=== PATIENT | male | born 1995 | race American Indian/Alaskan Native ===

== ENCOUNTER 2019-09-29 20:37 | Emergency (ER) | payer SELFPAY ==
[2019-09-29 21:07] VITALS: BP 126/83
--- NOTE | 2019-09-29 21:15 | Event Note ---
ED Screening Note Date of service: 09/29/19 Time: 21:12 ED Screening Note: This is a 24 y.o. M. that presents to the ER with sore throat and diarrhea. Sore throat for 1 week and diarrhea for 2 days. Denies recent travel, unusual foods, fever, chills, cough, abdominal pain, and vomiting. This initial assessment/diagnostic orders/clinical plan/treatment(s) is/are subject to change based on patients health status, clinical progression and re- assessment by fellow clinical providers in the ED. Further treatment and workup at subsequent clinical providers discretion. Patient/guardian urged not to elope from the ED as their condition may be serious if not clinically assessed and managed. Initial orders include: Rapid strep
--- NOTE | 2019-09-29 23:43 | Emergency Department Report ---
HPI - General Chief Complaint: Sore Throat Time Seen by Provider: 09/29/19 21:12 - HPI HPI: Room 29 The pt is a 24 y/o M p/w a cc of sore throat. The pt states his throat has hurt for 1.5 weeks. Pt denies cough, F or sick contacts. Pt gives his pain a score of 5/10 ED Past Medical Hx - Past Medical History Previous Medical History?: No - Surgical History Past Surgical History?: No - Family History Family history: no significant - Social History Smoking Status: Never Smoker Substance Use Type: None - Medications Home Medications: Home Medications Medication Instructions Recorded Confirmed Last Taken Type Amoxicillin [Trimox CAP] 500 mg PO BID #14 capsule 09/30/19 Unknown Rx Ibuprofen [Motrin 800 MG tab] 800 mg PO Q8HR PRN #20 tablet 09/30/19 Unknown Rx traMADol [Ultram] 50 mg PO Q6HR PRN #10 tablet 09/30/19 Unknown Rx ED Review of Systems ROS: Stated complaint: THROAT PAIN/DIARREAH Other details as noted in HPI Constitutional: denies: fever Eyes: denies: eye pain ENT: throat pain Respiratory: denies: cough Cardiovascular: denies: chest pain Physical Exam - Physical Exam Vital Signs: Vital Signs 09/29/19 20:49 Temperature 98.7 F Pulse Rate 95 H Respiratory 18 Rate Blood Pressure 126/83 O2 Sat by Pulse 97 Oximetry Physical Exam: GEN: WD WN M sitting in chair in NAD HEENT: NCAT, EOMI. uvula midline. no exudate seen NECK:Trachea midline, no stridor Pulm: no resp distress Neuro: GCS 15 SKIN: no diaphoresis MS: no evidence of acute injury ED Course Vital Signs 09/29/19 20:49 Temperature 98.7 F Pulse Rate 95 H Respiratory 18 Rate Blood Pressure 126/83 O2 Sat by Pulse 97 Oximetry ED Medical Decision Making - Radiology Data Radiology results: report reviewed (XR soft tissiue neck), image reviewed (XR soft tissiue neck) interpreted by me: XR soft tissiue neck- no prevertebral swelling. no evidence of epiglottitis [facility] [address] [place] [address] XRay Report Signed Patient: TRISHA LE MR#: [id number] : 1995 Acct:[id number] Age/Sex: 24 / M ADM Date: 09/29/19 Loc: ED Attending Dr: Ordering Physician: MAAME BLANCO MD Date of Service: 09/29/19 Procedure(s): XR neck soft tissue Accession Number(s): [id number] cc: MAAME BLANCO MD Fluoro Time In Minutes: NECK SOFT TISSUE 2 VIEW(S) INDICATION / CLINICAL INFORMATION: sore throat COMPARISON: None available. FINDINGS: EPIGLOTTIS: No significant abnormality. RETROPHARYNGEAL SOFT TISSUES: No significant abnormality. AIRWAY: No significant abnormality. RADIOPAQUE FOREIGN BODY: None seen. SKELETAL SYSTEM: No significant abnormality. ADDITIONAL FINDINGS: None. IMPRESSION: 1. No significant abnormality. Signer Name: Michelle Brannon MD Signed: 09/30/2019 12:04 AM Workstation Name: [id number] Transcribed By: DT Dictated By: Rashaad Brannon MD Electronically Authenticated By: Rashaad Brannon MD Signed Date/Time: 09/30/19 0004 DD/ 2359 TD/TT: - Differential Diagnosis pharyngitis, epiglottitis Critical care attestation.: If time is entered above; I have spent that time in minutes in the direct care of this critically ill patient, excluding procedure time. ED Disposition Clinical Impression: Sore throat Disposition: DC-01 TO HOME OR SELFCARE Is pt being admited?: No Does the pt Need Aspirin: No Condition: Stable Instructions: Pharyngitis (ED) Prescriptions: Ibuprofen [Motrin 800 MG tab] 800 mg PO Q8HR PRN #20 tablet PRN Reason: Pain, Moderate (4-6) Amoxicillin [Trimox CAP] 500 mg PO BID #14 capsule traMADol [Ultram] 50 mg PO Q6HR PRN #10 tablet PRN Reason: Pain Referrals: [facility] [Outside] - 3-5 Days JOSE ALBERTO EMERSON MD [Staff Physician] - 3-5 Days (Dr Emerson is an ear nose & throat doctor. Please follow up with him for further evaluation) Time of Disposition: 00:18
--- NOTE | 2019-09-30 00:08 | XRay Report ---
NECK SOFT TISSUE 2 VIEW(S) INDICATION / CLINICAL INFORMATION: sore throat COMPARISON: None available. FINDINGS: EPIGLOTTIS: No significant abnormality. RETROPHARYNGEAL SOFT TISSUES: No significant abnormality. AIRWAY: No significant abnormality. RADIOPAQUE FOREIGN BODY: None seen. SKELETAL SYSTEM: No significant abnormality. ADDITIONAL FINDINGS: None. IMPRESSION: 1. No significant abnormality. Signer Name: Michelle Brannon MD Signed: 09/30/2019 12:04 AM Workstation Name: [id number]
== END 2019-09-30 00:36 | disposition home or self-care (01) ==
LOC: ED 20:37
DX: J02.9 Acute pharyngitis, unspecified (principal); Z79.899 Other long term (current) drug therapy
CPT/HCPCS: 70360; 99283